=== PATIENT | male | born 1950 | race Caucasian/White ===

== ENCOUNTER 2020-09-23 15:32 | Inpatient (IN) | payer MEDICARE, SELFPAY ==
[2020-09-23] VITALS (16 sets, daily range): BP systolic 105–160; BP diastolic 45–69; PULSE 64–112; RESP 18–36; TEMP 36.7–39.5; O2SAT 91–96; BMI 22.8; BMI 23.5
--- NOTE | 2020-09-23 15:57 | EKG12_ITS ---
Test Reason : FEVER Blood Pressure : / mmHG Vent. Rate : 100 BPM Atrial Rate : 100 BPM P-R Int : 216 ms QRS Dur : 094 ms QT Int : 334 ms P-R-T Axes : 025 -14 073 degrees QTc Int : 430 ms Sinus rhythm with 1st degree A-V block Otherwise normal ECG Confirmed by JONA JUAREZ, BEHZAD ([id number]), managing editor QUENTIN SAUCEDO ([id number]) on 09/29/2020 10:21:37 A M Referred By: EILEEN Confirmed By:INGRIS TENORIO MD
--- NOTE | 2020-09-23 16:12 | ED.DCSUM_ITS ---
History of Present Illness Chief Complaint: Fever Informant: Patient, Family Narrative: 70-year-old male with no significant medical problems tells me that for the past 6 days he has felt ill. He notes fever, headache, sore throat, cough with sputum, myalgias. He notes the sore throat has prevented him from drinking and eating much for the past several days as result he has been urinating less and has not been moving his bowels. He notes he takes daily naproxen for arthritis pain. He feels short of breath. Past Medical History - Allergies and Home Meds Allergies/Adverse Reactions: Allergies No Known Allergies Allergy (Verified 09/23/20 15:39) Primary Care Physician: Care Physician,No Primary [Primary Care Provider] - Past Medical History: None Surgical History: - - Carpal tunnel surgery Lives: Spouse/ Significant Other Smoking Status: Never smoker Alcohol: None Drugs: None Review of Systems General: Reports: Chills, Fever, Malaise. Denies: Sweats Eyes: Denies: Visual changes - bilaterally, Diplopia ENT: Denies: Rhinorrhea, Sore throat Cardiovascular: Denies: Chest pain, Palpitations Respiratory: Reports: Dyspnea, Cough, Sputum. Denies: Dyspnea on exertion Gastrointestinal: Reports: Constipation. Denies: Abdominal pain, Nausea, Vomiting, Diarrhea, Melena, Hematochezia Genitourinary: Reports: - - Decreased urination. Denies: Dysuria, Hematuria, Frequency Musculoskeletal: Reports: Myalgias. Denies: Back pain, Swelling, Extremity Pain Skin: Denies: Rash, Wounds Neurological: Reports: Headache. Denies: Weakness, Numbness Physical Exam Vital Signs/Narrative: Vital Signs Temp Pulse Resp BP Pulse Ox 09/23/20 15:47 112 H 24 H 160/69 H 94 09/23/20 15:43 100.6 F H 09/23/20 15:33 102.9 F H 111 H 18 159/65 H 91 09/23/20 15:32 103.1 F H 112 H 18 159/65 H 91 Inital Vital Signs reviewed: Yes General: Well nourished, Well developed, No Acute Distress Head: Normocephalic, Atraumatic Eyes: Perrl, EOMI ENT: No rhinorrhea, Dry mucous membranes Neck: Supple, Nontender Cardiovascular: Regular rate, No murmurs, Tachycardia Respiratory: No distress, CTA bilaterally, Chest nontender Abdomen: Soft, Nontender, Nondistended, Normal bowel sounds Back: Nontender, Normal Inspection Extremities: Nontender, No edema Skin: Normal color, No rash Neurological: Alert, Oriented x3, Cranial nerves II-XII grossly intact, Normal Strength, Normal Sensation Psychological: Normal affect, Normal Mood Diagnostic/Tx/Re-eval Clinical Impression(s) from Imaging Studies Chest X-Ray 09/23/20 16:55 IMPRESSION: Left lower lung infiltrate. Electronically Signed: Denver Wyman MD at 17:18 EST , Service support , Chest CTA 09/23/20 17:38 IMPRESSION: CTA chest examination, without a demonstrated pulmonary embolism or arterial dissection. Left greater than right pneumonia. Electronically Signed: Denver Wyman MD at 19:14 EST , Service support , Laboratory Last Values WBC 7.5 K/mm3 (4.4-11.0) 09/23/20 16:15 RBC 5.21 M/mm3 (4.6-6.2) 09/23/20 16:15 Hgb 15.0 g/dL (13.0-16.5) 09/23/20 16:15 Hct 44.3 % (40-54) 09/23/20 16:15 MCV 85.0 fL (80-94) 09/23/20 16:15 MCH 28.8 pg (27.0-32.0) 09/23/20 16:15 MCHC 33.9 g/dL (32-36) 09/23/20 16:15 RDW Std Deviation 41.8 fl (35.1-43.9) 09/23/20 16:15 RDW Coeff of Laura 13.4 % (11.6-14.6) 09/23/20 16:15 Plt Count 146 K/mm3 (150-450) L 09/23/20 16:15 MPV 10.2 fl (6.2-12.0) 09/23/20 16:15 Immature Gran % (Auto) 0.300 % (0.0-0.9) 09/23/20 16:15 Neut % (Auto) 96.3 % (47-70) H 09/23/20 16:15 Lymph % (Auto) 0.9 % (19-41) L 09/23/20 16:15 [place] % (Auto) 2.4 % (0-10) 09/23/20 16:15 Eos % (Auto) 0.0 % (0-5) 09/23/20 16:15 Baso % (Auto) 0.1 % (0-1) 09/23/20 16:15 Absolute Neuts (auto) 7.2 X10^3/uL (2.0-7.7) 09/23/20 16:15 Absolute Lymphs (auto) 0.07 X10^3/uL (0.83-4.51) L 09/23/20 16:15 Nucleated RBC % 0 % (0-5) 09/23/20 16:15 Differential Comment SEE COMMENT 09/23/20 16:15 Platelet Estimate SLT DEC (ADEQ) 09/23/20 16:15 RBC Morphology NORM C+C NORMAL (NORM C&C) 09/23/20 16:15 PT 14.1 SECONDS (11.7-14.9) 09/23/20 16:15 INR 1.1 09/23/20 16:15 APTT 39.2 Seconds (24.1-36.2) H 09/23/20 16:15 Fibrinogen 739 mg/dl (203-444) H 09/23/20 16:15 Sodium 136 mmol/L (136-145) 09/23/20 16:15 Potassium 3.5 mmol/L (3.5-5.1) 09/23/20 16:15 Chloride 100 mmol/L (98-107) 09/23/20 16:15 Carbon Dioxide 29.0 mmol/L (21.0-32.0) 09/23/20 16:15 Anion Gap 7 (5-15) 09/23/20 16:15 BUN 23 mg/dL (7-18) H 09/23/20 16:15 Creatinine 1.16 mg/dL (0.70-1.30) 09/23/20 16:15 Estim Creat Clear Calc 56.18 ml/min 09/23/20 16:15 Est GFR (MDRD) Af Amer 80 mL/min (>60) 09/23/20 16:15 Est GFR (MDRD) Non-Af 66 mL/min (>60) 09/23/20 16:15 BUN/Creatinine Ratio 19.8 RATIO (10-20) 09/23/20 16:15 Glucose 117 mg/dL (74-106) H 09/23/20 16:15 Lactic Acid 1.3 mmol/L (0.4-1.9) 09/23/20 16:15 Calcium 8.5 mg/dL (8.5-10.1) 09/23/20 16:15 Total Bilirubin 1.10 mg/dL (0.20-1.00) H 09/23/20 16:15 AST 27 U/L (15-37) 09/23/20 16:15 ALT 26 U/L (16-61) 09/23/20 16:15 Alkaline Phosphatase 44 U/L (45-117) L 09/23/20 16:15 Total Creatine Kinase 183 U/L (39-308) 09/23/20 16:15 Troponin I < 0.015 ng/mL (<0.045) 09/23/20 16:15 C-React Prot Ext Range 215.00 mg/L (0.0-3.0) H 09/23/20 16:15 Total Protein 7.2 g/dL (6.4-8.2) 09/23/20 16:15 Albumin 3.5 g/dL (3.2-5.0) 09/23/20 16:15 Globulin 3.7 g/dL (2.2-4.2) 09/23/20 16:15 Albumin/Globulin Ratio 0.9 RATIO (0.9-2.4) 09/23/20 16:15 Procalcitonin 2.00 ng/mL (0.00-0.09) H 09/23/20 16:15 Urine Color Yellow (Yellow) 09/23/20 17:50 Urine Clarity Clear (Clear) 09/23/20 17:50 Urine pH 5.0 (5.0 - 8.0) 09/23/20 17:50 Ur Specific [place] 1.020 (1.002-1.030) 09/23/20 17:50 Urine Protein 100 mg/dl (Negative) H 09/23/20 17:50 Urine Glucose (UA) Normal mg/dl (Normal) 09/23/20 17:50 Urine Ketones 15 mg/dl (Negative) H 09/23/20 17:50 Urine Occult Blood 25 /ul (Negative) H 09/23/20 17:50 Urine Nitrite Negative (Negative) 09/23/20 17:50 Urine Bilirubin 1 mg/dL (Negative) H 09/23/20 17:50 Urine Urobilinogen 1 mg/dl (Normal) H 09/23/20 17:50 Ur Leukocyte Esterase 25 /ul (Negative) H 09/23/20 17:50 Urine RBC 0 SEEN /hpf (0-5) 09/23/20 17:50 Urine WBC 0 SEEN /hpf (0-5) 09/23/20 17:50 Ur Squamous Epith Cells 0 SEEN /hpf (0-5) 09/23/20 17:50 Urine Bacteria 2+ /hpf (None Seen) 09/23/20 17:50 Urine Mucus 0 SEEN /hpf (<or=2+) 09/23/20 17:50 - EKG Initial EKG Interpretation: Sinus Rhythm - EKG demonstrates a sinus rhythm with a first- degree AV block at a rate of 100 bpm. No concerning features of ACS or ectopy noted. - Medical Decision Making Patient received IV fluids and Tylenol. His COVID-19 test came back positive. Influenza was negative. Lactic acid normal. White count is 7. My interpretation of the portable chest x-ray is acute left lower lung infiltrate. He was given Rocephin and azithromycin. CTA of the chest was obtained. It was negative for pulmonary embolism. There was left greater than right infiltrates noted. Patient appears ill. He has COVID-19 and has evidence of infiltrate on his chest x-ray along with cough and sputum production. Plan will be admission I will speak with our hospitalist. ED Disposition - Plan for ED Patient: Disposition: Acute Care Hospital [facility] Diagnosis: COVID-19, Pneumonia, Sepsis due to COVID-19 Referrals: Care Physician,No Primary [Primary Care Provider] -
[2020-09-23] MEDS: 0.9% Normal Saline 1,000 ML 999 ML IV (16:25)
[2020-09-23] MEDS: Acetaminophen 500 MG Tablet 1000 MG PO (16:25)
[2020-09-23] MEDS: 0.9% Normal Saline 1,000 ML 250 ML IV ×2 (16:34→20:02)
[2020-09-23 16:42] LABS: Absolute Lymphocyte Count 0.07 X10^3/uL (0.83-4.51); Absolute Neutrophil Count 7.2 X10^3/uL (2.0-7.7); Basophil# 0.01 X10^3/uL; Basophil% 0.1 % (0-1); Hematocrit 44.3 % (40-54); Lymphocyte # 0.07 X10^3/ul (4.0); Lymphocyte % 0.9 % (19-41); Mean Corp Hgb Conc 33.9 g/dL (32-36); Mean Corpuscular Hgb 28.8 pg (27.0-32.0); Mean Platelet Vol. 10.2 fl (6.2-12.0); Monocyte# 0.18 X10^3/uL; Monocyte% 2.4 % (0-10); NRBC Flagged by Analyzer 0 % (0-5); Neutrophil # 7.18 X10^3/uL (2.7-7.7); Neutrophil % 96.3 % (47-70); POSITIVE DIFFERENTIAL YES; Platelet Count 146 K/mm3 (150-450); RBC Distribution Width CV 13.4 % (11.6-14.6); RBC Distribution Width SD 41.8 fl (35.1-43.9); Red Blood Count 5.21 M/mm3 (4.6-6.2); White Blood Count 7.5 K/mm3 (4.4-11.0)
[2020-09-23 16:43] LABS: Differential Indicated SCAN CRITERIA MET
[2020-09-23 16:54] LABS: International Normalized Ratio 1.1; Prothrombin Time (Protime)PT. 14.1 SECONDS (11.7-14.9)
[2020-09-23 16:55] LABS: Fibrinogen 739 mg/dl (203-444); Partial Thromboplast Time 39.2 Seconds (24.1-36.2)
[2020-09-23] MEDS: Ceftriaxone 1 GM/50 ML BAG IV (16:55)
--- NOTE | 2020-09-23 16:55 | RAD_ITS ---
STUDY: X-RAY CHEST REASON FOR EXAM: Male, 70 years old. FEVER AND COUGH TECHNIQUE: Single AP portable view of the chest. COMPARISON: None. FINDINGS: There are monitoring devices. There are mild left lower lung increased opacities. There is no demonstrated pleural abnormality. Normal size heart. Normal mediastinum and tsernig. Normal visualized pulmonary arteries. Normal visualized aortic arch and descending thoracic aorta. There are diffuse degenerative changes of the visualized thoracic spine. Normal visualized ribs, clavicles, and shoulders. There is no demonstrated abnormality of the visualized soft tissue structures of the upper abdomen. RAD/Chest 1 View (Portable) IMPRESSION: Left lower lung infiltrate. Electronically Signed: Denevr Wyman MD at 17:18 EST , Service support ,
[2020-09-23 17:15] LABS: Lactic Acid 1.3 mmol/L (0.4-1.9)
[2020-09-23 17:25] LABS: ALB/GLOB Ratio 0.9 RATIO (0.9-2.4); AST(SGOT) 27 U/L (15-37); Alanine Aminotransfer ALT/SGPT 26 U/L (16-61); Albumin, Serum 3.5 g/dL (3.2-5.0); Alkaline Phosphatase 44 U/L (45-117); Anion Gap 7 (5-15); BUN 23 mg/dL (7-18); BUN/Creat Ratio 19.8 RATIO (10-20); CPK Total, Creatine Kinase 183 U/L (39-308); Calcium,Total 8.5 mg/dL (8.5-10.1); Chloride 100 mmol/L (98-107); Creatinine, Serum 1.16 mg/dL (0.70-1.30); EST Glomerular Filtration Rate 66 mL/min (>60); Est Glom Filt Rate - Afr Amer 80 mL/min (>60); Estimated Creatinine Clearance 56.18 ml/min; Globulin 3.7 g/dL (2.2-4.2); Glucose 117 mg/dL (74-106); Potassium 3.5 mmol/L (3.5-5.1); Protein, Total 7.2 g/dL (6.4-8.2); Sodium Level 136 mmol/L (136-145)
[2020-09-23 17:30] LABS: Platelet Estimate SLT DEC (ADEQ); Red Cell Morphology NORM C+C NORMAL (NORM C&C)
--- NOTE | 2020-09-23 17:38 | CT_ITS ---
STUDY: CTA CHEST REASON FOR EXAM: Male, 70 years old. COVID 19 pneumonia dyspnea RADIATION DOSAGE (If Supplied By Facility): CTDIvol = ( 10.16 ) mGy, DLP = ( 372.75 ) mGycm TECHNIQUE: The examination was performed with the intravenous administration of 100mL Isovue-370. Post-processing of the angiographic images was performed, with multiplanar reformation and 3D reconstruction. Individualized dose optimization techniques were used for this CT. COMPARISON: Chest x-ray FINDINGS: Normal enhancement of the main pulmonary artery and right and left pulmonary arteries. Normal enhancement of the bilateral peripheral pulmonary arteries. There is no demonstrated pulmonary embolism. Normal thoracic aorta and visualized great vessels. There is no demonstrated aortic dissection. There are calcifications of the coronary arteries. There are calcified mediastinal lymph nodes. There are calcified right hilar lymph nodes. Normal visualized trachea and bronchi. The lungs are well expanded. There are left greater than right lower lung groundglass and airspace increased opacities.. There is right lower lung granuloma. Normal pleura. Normal chest wall structures. Arthritic of the spine with spurring and ankylosis Normal visualized upper abdomen. CT/CTA Chest W/WO Contrast IMPRESSION: CTA chest examination, without a demonstrated pulmonary embolism or arterial dissection. Left greater than right pneumonia. Electronically Signed: Denver Wyman MD at 19:14 EST , Service support ,
[2020-09-23] MEDS: dexAMETHasone 4 MG Tablet 6 MG PO (17:50)
[2020-09-23 18:03] LABS: Mucous, Urine 0 SEEN /hpf (<or=2+); Red Blood Cells-Urine 0 SEEN /hpf (0-5); Squamous Epithelial Cells - UA 0 SEEN /hpf (0-5); White Blood Cells 0 SEEN /hpf (0-5)
[2020-09-23 18:14] LABS: Color, Urine Yellow (Yellow); Glucose, Dipstick Normal (Normal); Ketone-Dipstick 15 mg/dl (Negative); Leukocyte Esterase-Dipstick 25 /ul (Negative); Nitrite-Dipstick Negative (Negative); Occult Blood-Urine 25 /ul (Negative); Protein-Dipstick 100 mg/dl (Negative); Urine Clarity Clear (Clear); Urine Urobilinogen 1 mg/dl (Normal)
[2020-09-23 18:16] LABS: Urine Bilirubin Dipstick 1 mg/dL (Negative)
[2020-09-23 18:28] LABS: Bacteria 2+ /hpf (None Seen)
--- NOTE | 2020-09-23 19:53 | ED.RN ---
Nurse from ICU will call back for report as she is in a covid room at this time
--- NOTE | 2020-09-23 20:06 | PCM.HP.STD ---
Problem List (1) COVID-19 Status: Acute (2) Pneumonia Status: Acute (3) Sepsis due to COVID-19 Status: Acute History of Present Illness Date of Admission: 09/23/20 Chief Complaint: Shortness of breath, cough for 5 days The patient is a 70 year old M with no significant past medical history came to ER with shortness of breath, cough, fever and chills, headache for last 5 days. This started with headache, muscle aches, sore throat and after few days he started having fever and chills. Temperature in ED 102.9 Fahrenheit. Patient denies any recent exposure to [place] gathering. He lives with his . Patient denies chronic cardiopulmonary disease, smoking history, stroke or peripheral arterial disease. Denies chest pain or tightness but has sore throat. He also said decreased oral intake of fluid and food for last 4 days secondary to sore throat and his urine output is low and dark yellow.\ In ED, he was tachypneic, pulse ox 93% on room air. [] Labs reviewed. Inflammatory markers elevated including fibrinogen, PTT, CRP, procalcitonin 2.0. Patient does not have leukocytosis but relative lymphopenia 0.9%. Chest x-ray and subsequent CTA chest was done which shows left lower lobe infiltrate, more than right lower lobe but negative for pulmonary embolism. Past Medical History Allergies No Known Allergies Allergy (Verified 09/23/20 15:39) Home Medications: Ambulatory Orders Medication Instructions Recorded Naproxen Sodium [Aleve] 440 mg PO DAILY 09/23/20 Surgical History: - - Carpal tunnel surgery Lives: Spouse/ Significant Other Smoking Status: Never smoker Alcohol: None Drugs: None - *Family History Paternal History Items: No pertinent history Review of Systems Constitutional: Reports: Anorexia, Chills, Fever, Malaise, Weakness, Fatigue. Denies: Weight Change HEENT: Denies: Head Aches, Sinus Congestion, Sinus Drainage Cardiovascular: Denies: Chest Pain, Palpitations Respiratory: Reports: Cough, Shortness of Breath, Shortness of breath at rest, Shortness of breath upon exertion, Sputum production Gastrointestinal: Denies: Abdominal Pain, Constipation, Hematemesis, Hematochezia, Nausea, Melena, Vomiting Genitourinary: Reports: - - Oliguria. Denies: Dysuria, Frequency, Hesitancy Musculoskeletal: Reports: Muscle pain. Denies: Joint Pain, Joint Tenderness Skin: Denies: Rash, Wounds Neurological: Denies: Numbness, Tingling, Focal weakness Psychiatric: Denies: Anxiety, Depression, Homicidal Ideations, Suicidal Ideations Hematologic/ Lymphatic: Denies: Easy Bruising, Easy Bleeding VTE Information - Inpt Only VTE Present on Admission: No VTE Mechan Device Prophylaxis: SCD's, None VTE Pharm Prophylaxis ordered?: Yes Patient Problems: Active and Suspected Problems COVID-19 (Acute) Pneumonia (Acute) Sepsis due to COVID-19 (Acute) Objective: General: Alert, Oriented x3, Cooperative HEENT: Atraumatic, PERRLA, EOMI, Normocephalic Oral: No Gingival or Mucosal Lesions/ Ulcerations Neck: Supple, No JVD, Negative Carotid Bruits Lungs: Air entry diminished in bilateral lung bases. Bilateral coarse crepitations present. Tachypnea. Cardiovascular: Regular rate, Regular Rhythm, Normal S1, Normal S2, No murmurs Abdomen: Bowel Sounds Present, Soft, Non Tender, Non-Distended : No renal angle tenderness. No suprapubic tenderness. Extremities: No edema, Capillary Refill Less than 3 Seconds Skin: No rashes, No breakdown Musculoskeletal: No Tenderness to Palpation of Joints or Extremities Neurological: Cranial nerves II-XII grossly intact, Deep Tendon Reflexes 2+/4 and Symmetrical, Neuro grossly intact Psych/Mental Status: Normal Affect, Appropriate. - Physical Exam Vitals/I&O's: Vital Signs Temp Pulse Resp BP Pulse Ox 99.1 F 73 26 H 105/59 L 94 09/23/20 20:03 09/23/20 20:03 09/23/20 20:03 09/23/20 20:03 09/23/20 20:03 Oxygen Delivery Method Room Air Weight: 149 lb 14.629 oz Body Mass Index (BMI) 22.8 Intake and Output for Last 24 Hours 09/21/20 09/22/20 09/23/20 23:59 23:59 23:59 Intake Total 2305 / 2305 Balance 2305 / 2305 Microbiology Past 72 Hours 09/23/20 16:50 Mucosa - Nose SARS-CoV-2 Antigen (Rapid) - Final SARS-CoV-2 (COVID 19) 09/23/20 16:16 Mucosa - Nasopharyngeal Influenza Types A,B Direct FA (LOREE) - Final Laboratory Results 09/23/20 16:15: WBC 7.5, RBC 5.21, Hgb 15.0, Hct 44.3, MCV 85.0, MCH 28.8, MCHC 33.9, RDW Std Deviation 41.8, RDW Coeff of Laura 13.4, Plt Count 146 L, MPV 10.2, Immature Gran % (Auto) 0.300, Neut % (Auto) 96.3 H, Lymph % (Auto) 0.9 L, [place] % (Auto) 2.4, Eos % (Auto) 0.0, Baso % (Auto) 0.1, Absolute Neuts (auto) 7.2, Absolute Lymphs (auto) 0.07 L, Nucleated RBC % 0, Differential Comment SEE COMMENT, Platelet Estimate SLT DEC, RBC Morphology NORM C+C 09/23/20 16:15: PT 14.1, INR 1.1, APTT 39.2 H, Fibrinogen 739 H 09/23/20 16:15: Sodium 136, Potassium 3.5, Chloride 100, Carbon Dioxide 29.0, Anion Gap 7, BUN 23 H, Creatinine 1.16, Estim Creat Clear Calc 56.18, Est GFR (MDRD) Af Amer 80, Est GFR (MDRD) Non-Af 66, BUN/Creatinine Ratio 19.8, Glucose 117 H, Calcium 8.5, Total Bilirubin 1.10 H, AST 27, ALT 26, Alkaline Phosphatase 44 L, Total Creatine Kinase 183, Troponin I < 0.015, C-React Prot Ext Range 215.00 H, Total Protein 7.2, Albumin 3.5, Globulin 3.7, Albumin/Globulin Ratio 0.9 09/23/20 16:15: Lactic Acid 1.3 09/23/20 16:15: Procalcitonin 2.00 H 09/23/20 17:50: Urine Color Yellow, Urine Clarity Clear, Urine pH 5.0, Ur Specific [place] 1.020, Urine Protein 100 H, Urine Glucose (UA) Normal, Urine Ketones 15 H, Urine Occult Blood 25 H, Urine Nitrite Negative, Urine Bilirubin 1 H, Urine Urobilinogen 1 H, Ur Leukocyte Esterase 25 H, Urine RBC 0 SEEN, Urine WBC 0 SEEN, Ur Squamous Epith Cells 0 SEEN, Urine Bacteria 2+, Urine Mucus 0 SEEN Current Medications Sodium Chloride () 1,000 mls @ 250 mls/hr IV .Q4H LEONIDAS Last Admin: 09/23/20 20:02 Dose: 250 mls/hr Documented by: Assessment/Plan All Active Problems COVID-19 (Acute) Pneumonia (Acute) Sepsis due to COVID-19 (Acute) The patient is a 70 year old M with no significant past medical history came to ER with shortness of breath, cough, fever and chills, headache for last 5 days. Clinical findings, labs and CT consistent with pneumonia. 1. Sepsis due to acute COVID-19 pneumonia with possible bacterial superinfection: CT chest individually reviewed and does not show predominant groundglass but mainly left lower lobe infiltrate. Patient started on ceftriaxone, azithromycin and Decadron in the ER. Continue ceftriaxone Decadron. IV remdesivir started. ID consult. Sputum culture, urinary antigens, respiratory panel ordered. SARS-CoV-2 rapid antigen positive. 2. Prerenal azotemia with oliguria: IV fluid normal saline 1 L given in ED. 1 more liter normal saline bolus ordered and then 100 mill hour for another 1 L. 3. DVT prophylaxis: Lovenox 30 subcu twice daily Living will/advanced directive/end of life care: Patient does not have living will or advanced directive. His is power of attorney recruiter for his health. After discussion of benefits/risks procedures involved with full code, DNR CC arrest and DNR CC, the patient opted for DNR-CC Arrest with no intubation Patient does not want artificial life support including intubation, tube feed, ventilator and/chest compression, central venous catheter, vasopressor and DC shock if needed Total time spent in [id number] encounter in discussion of advanced directive 16 minutes. Clinical Impression(s) from Imaging Studies Chest X-Ray 09/23/20 16:55 IMPRESSION: Left lower lung infiltrate. Electronically Signed: Denver Wyman MD at 17:18 EST , Service support , Chest CTA 09/23/20 17:38 IMPRESSION: CTA chest examination, without a demonstrated pulmonary embolism or arterial dissection. Left greater than right pneumonia. Inpatient E&M: 36203 Init Hosp L3 Procedures: 12310 Advncd Care Plan 30 Min
--- NOTE | 2020-09-23 20:18 | ED.RN ---
report SBARQ given to BOLA Goldberg in ICU for patient
[2020-09-23 20:49] LABS: BNP,B-Type NATRIURETIC PEPTIDE 36.4 pg/mL (0-100)
[2020-09-23 20:50] LABS: D-Dimer Quantitative (DVT/PE) 1.06 FEU/ug/m (0.27-0.49)
[2020-09-23 21:36] LABS: LDH 221 U/L (87-241)
[2020-09-23] MEDS: Enoxaparin 30 MG/0.3 ML Syringe SC (21:45)
[2020-09-23] MEDS: 0.9% Normal Saline 1,000 ML 100 ML IV (21:46)
[2020-09-24] VITALS (11 sets, daily range): BP systolic 126–135; BP diastolic 48–64; PULSE 51–66; RESP 16–18; TEMP 37.2–37.3; O2SAT 95–98
[2020-09-24 04:41] LABS: Hematocrit 38.7 % (40-54); Hemoglobin 12.6 g/dL (13.0-16.5); Mean Corp Hgb Conc 32.6 g/dL (32-36); Mean Corpuscular Hgb 28.1 pg (27.0-32.0); Mean Corpuscular Volume 86.4 fL (80-94); Mean Platelet Vol. 10.4 fl (6.2-12.0); Platelet Count 121 K/mm3 (150-450); RBC Distribution Width CV 13.3 % (11.6-14.6); RBC Distribution Width SD 42.5 fl (35.1-43.9); Red Blood Count 4.48 M/mm3 (4.6-6.2); White Blood Count 5.4 K/mm3 (4.4-11.0)
[2020-09-24 05:09] LABS: ALB/GLOB Ratio 0.9 RATIO (0.9-2.4); AST(SGOT) 34 U/L (15-37); Alanine Aminotransfer ALT/SGPT 25 U/L (16-61); Albumin, Serum 2.6 g/dL (3.2-5.0); Alkaline Phosphatase 40 U/L (45-117); Anion Gap 6 (5-15); BUN 22 mg/dL (7-18); BUN/Creat Ratio 23.5 RATIO (10-20); Calcium,Total 7.6 mg/dL (8.5-10.1); Chloride 106 mmol/L (98-107); Creatinine, Serum 0.94 mg/dL (0.70-1.30); EST Glomerular Filtration Rate 85 mL/min (>60); Est Glom Filt Rate - Afr Amer 102 mL/min (>60); Estimated Creatinine Clearance 69.73 ml/min; Glucose 141 mg/dL (74-106); Magnesium 1.8 mg/dL (1.6-2.6); Potassium 3.7 mmol/L (3.5-5.1); Protein, Total 5.6 g/dL (6.4-8.2); Sodium Level 139 mmol/L (136-145)
[2020-09-24] MEDS: 0.9% Saline Lock 10 ML Syringe IV (10:06)
[2020-09-24] MEDS: Enoxaparin 30 MG/0.3 ML Syringe SC ×2 (10:07→22:26)
[2020-09-24] MEDS: dexAMETHasone 4 MG Tablet 6 MG PO (10:10)
--- NOTE | 2020-09-24 10:12 | PN_ITS ---
Patient Problems: Active and Suspected Problems COVID-19 (Acute) Pneumonia (Acute) Sepsis due to COVID-19 (Acute) Subjective: Patient seen and examined. He was admitted with a complaint of shortness of breath and cough for 5 days with associated headache and muscle aches. Covid test done was positive. He has been managed for COVID-19 infection and is on Decadron and remdesivir. Patient still states he feels weak and tired. His shortness of breath is improved but he feels the same as he did yesterday. Review systems otherwise negative. He has remained hemodynamically stable. Vitals/I&O's: Vital Signs Temp Pulse Resp BP Pulse Ox 99.2 F H 65 16 135/48 H 98 09/24/20 10:05 09/24/20 10:05 09/24/20 10:05 09/24/20 10:05 09/24/20 10:05 Oxygen Delivery Method Room Air Weight: 154 lb 8.705 oz Body Mass Index (BMI) 23.5 Intake and Output for Last 24 Hours 09/22/20 09/23/20 09/24/20 23:59 23:59 23:59 Intake Total 3437.5 / 3437.5 1120 / 1120 Output Total 250 / 250 300 / 300 Balance 3187.5 / 3187.5 820 / 820 General: Alert, Oriented x3, Cooperative, No apparent distress HEENT: Atraumatic, PERRLA, EOMI, Normocephalic Oral: Dry Mucosa Neck: Supple, No JVD, Negative Carotid Bruits Lungs: Clear to auscultation, Normal air movement, No rhonchi, No wheeze, No rales Cardiovascular: Regular rate, Regular Rhythm, Normal S1, Normal S2, No murmurs Abdomen: Bowel Sounds Present, Soft, Non Tender, Non-Distended, No Hepato- splenomegaly Extremities: No clubbing, No cyanosis, No edema, Capillary Refill Less than 3 Seconds Skin: No rashes, No breakdown Musculoskeletal: No Tenderness to Palpation of Joints or Extremities Lymphatic: No Cervical, Supraclavicular, or Inguinal Adenopathy Neurological: Cranial nerves II-XII grossly intact, Neuro grossly intact, Motor Exam 5/5 strength throughout Psych/Mental Status: Normal Affect, Appropriate, Alert and oriented to time, place, person, mood and affect Microbiology Past 72 Hours 09/24/20 04:25 Sputum, Expectorated/Coughed Gram Stain - Final 09/23/20 16:50 Mucosa - Nasopharyngeal Respiratory Panel (PCR) - Final 09/23/20 17:50 Urine, Clean Catch Legionella Antigen - Final 09/23/20 17:50 Urine, Clean Catch Streptococcus pneumoniae Antigen (M - Final 09/23/20 16:50 Mucosa - Nose SARS-CoV-2 Antigen (Rapid) - Final SARS-CoV-2 (COVID 19) 09/23/20 16:16 Mucosa - Nasopharyngeal Influenza Types A,B Direct FA (LOREE) - Final Laboratory Results 09/23/20 16:15: WBC 7.5, RBC 5.21, Hgb 15.0, Hct 44.3, MCV 85.0, MCH 28.8, MCHC 33.9, RDW Std Deviation 41.8, RDW Coeff of Laura 13.4, Plt Count 146 L, MPV 10.2, Immature Gran % (Auto) 0.300, Neut % (Auto) 96.3 H, Lymph % (Auto) 0.9 L, [place] % (Auto) 2.4, Eos % (Auto) 0.0, Baso % (Auto) 0.1, Absolute Neuts (auto) 7.2, Absolute Lymphs (auto) 0.07 L, Nucleated RBC % 0, Differential Comment SEE COMMENT, Platelet Estimate SLT DEC, RBC Morphology NORM C+C 09/23/20 16:15: PT 14.1, INR 1.1, APTT 39.2 H, Fibrinogen 739 H 09/23/20 16:15: Sodium 136, Potassium 3.5, Chloride 100, Carbon Dioxide 29.0, Anion Gap 7, BUN 23 H, Creatinine 1.16, Estim Creat Clear Calc 56.18, Est GFR (MDRD) Af Amer 80, Est GFR (MDRD) Non-Af 66, BUN/Creatinine Ratio 19.8, Glucose 117 H, Calcium 8.5, Total Bilirubin 1.10 H, AST 27, ALT 26, Alkaline Phosphatase 44 L, Total Creatine Kinase 183, Troponin I < 0.015, C-React Prot Ext Range 215.00 H, Total Protein 7.2, Albumin 3.5, Globulin 3.7, Albumin/Globulin Ratio 0.9 09/23/20 16:15: Lactic Acid 1.3 09/23/20 16:15: Procalcitonin 2.00 H 09/23/20 16:15: D-Dimer Quant (PE/DVT) 1.06 H* 09/23/20 16:15: B-Natriuretic Peptide 36.4 09/23/20 16:15: Lactate Dehydrogenase 221 09/23/20 17:50: Urine Color Yellow, Urine Clarity Clear, Urine pH 5.0, Ur Specific [place] 1.020, Urine Protein 100 H, Urine Glucose (UA) Normal, Urine Ketones 15 H, Urine Occult Blood 25 H, Urine Nitrite Negative, Urine Bilirubin 1 H, Urine Urobilinogen 1 H, Ur Leukocyte Esterase 25 H, Urine RBC 0 SEEN, Urine WBC 0 SEEN, Ur Squamous Epith Cells 0 SEEN, Urine Bacteria 2+, Urine Mucus 0 SEEN 09/24/20 04:25: WBC 5.4, RBC 4.48 L, Hgb 12.6 L, Hct 38.7 L, MCV 86.4, MCH 28.1, MCHC 32.6, RDW Std Deviation 42.5, RDW Coeff of Laura 13.3, Plt Count 121 L, MPV 10.4 09/24/20 04:25: Sodium 139, Potassium 3.7, Chloride 106, Carbon Dioxide 27.0, Anion Gap 6, BUN 22 H, Creatinine 0.94, Estim Creat Clear Calc 69.73, Est GFR (MDRD) Af Amer 102, Est GFR (MDRD) Non-Af 85, BUN/Creatinine Ratio 23.5 H, Glucose 141 H, Calcium 7.6 L, Magnesium 1.8, Total Bilirubin 0.50, AST 34, ALT 25, Alkaline Phosphatase 40 L, C-React Prot Ext Range 150.00 H, Total Protein 5.6 L, Albumin 2.6 L, Globulin 3.0, Albumin/Globulin Ratio 0.9 Diagnostic Data Chest X-Ray 09/23/20 16:55 IMPRESSION: Left lower lung infiltrate. Electronically Signed: Denver Wyman MD at 17:18 EST , Service support , Chest CTA 09/23/20 17:38 IMPRESSION: CTA chest examination, without a demonstrated pulmonary embolism or arterial dissection. Left greater than right pneumonia. Electronically Signed: Denver Wyman MD at 19:14 EST , Service support , Current Medications Acetaminophen (Acetaminophen 325 Mg Tablet) 650 mg PO Q6H PRN PRN PRN Reason: Pain Score 1-10/Temp > 100.7 F Dexamethasone (Dexamethasone 4 Mg Tablet) 6 mg PO DAILY [facility] Stop: 10/02/20 10:01 Last Admin: 09/24/20 10:10 Dose: 6 mg Documented by: Enoxaparin Sodium (Enoxaparin 30 Mg/0.3 Ml Syringe) 30 mg SC BID [facility] Last Admin: 09/24/20 10:07 Dose: 30 mg Documented by: Remdesivir 100 mg/ Sodium (Chloride) 250 mls @ 125 mls/hr IV DAILY@2200 [facility] Stop: 09/27/20 23:59 Sodium Chloride () 250 mls @ 15 mls/hr IV .[id number] PRN PRN Reason: Saline Flush Sodium Chloride () 250 mls @ 15 mls/hr IV .[id number] PRN PRN Reason: Additional IVPB Infusion Morphine Sulfate (Morphine 2 Mg/Ml Syringe) 2 mg IV Q3H PRN PRN PRN Reason: Pain Score 6-10 Nitroglycerin (Nitroglycerin (Inpatient Use) 0.4 Mg Tab.Subl) 0.4 mg SL Q5M PRN PRN Reason: CARDIAC/CHEST PAIN Nutritional Formula (Lactose Free) (Ensure Enlive 120 Ml Liquid) 120 ml PO 4X/DAY [facility] Last Admin: 09/24/20 10:03 Dose: Not Given Documented by: Ondansetron HCl (Ondansetron 4 Mg/2 Ml Vial) 4 mg IV Q8H PRN PRN PRN Reason: NAUSEA/VOMITING Oxycodone HCl (Oxycodone 5 Mg Tablet) 5 mg PO Q4H PRN PRN PRN Reason: Pain Score 4-5 Senna/Docusate Sodium (Senna/Docusate Sodium 1 Tablet) 2 tablet PO BID PRN PRN PRN Reason: Constipation Sodium Chloride (0.9% Saline Lock 10 Ml Syringe) 10 - 40 ml IV UD PRN PRN Reason: SALINE FLUSH Last Admin: 09/24/20 10:06 Dose: 20 ml Documented by: STROKE Vital Signs/Narrative: Vital Signs Temp Pulse Resp BP Pulse Ox 09/24/20 10:05 99.2 F H 65 16 135/48 H 98 09/24/20 08:06 95 Medical Necessity - Tobacco Use Smoking Status: Never smoker Assessment/Plan All Active Problems COVID-19 (Acute) Pneumonia (Acute) Sepsis due to COVID-19 (Acute) #Sepsis due to COVID 19 pneumonia with superimposed bacterial pneumonia * Chest CT showed left lower lobe infiltrate. On IV ceftriaxone and azithromycin. * On remdesivir and decadron * urine for strep and legionella were negative * ID on board * sputum culture pending * #COVID 19 pneumonia; as above #DVT prophylaxis: lovenox Inpatient E&M: 51867 Subs Hosp L2
--- NOTE | 2020-09-24 10:39 | PCM.HP.ID ---
Problem List (1) COVID-19 Status: Acute Reason for Consult: covid Consulted by: Dr. Thao History of Present Illness: The patient is a 70 year old M presented 09/23 with sx starting 09/18 with headache, fever, sore throat, cough, dyspnea. Minimal aches. No change in taste and smell. Has increased amount of normal yellow/green sputum. Has not gotten covid shot. now with some cough, has not been tested. Came to ED, covid (+), started on dex and remdesivir. Given azithro and ceftriaxone. Feeling about the same this AM. Full ROS performed and neg except as noted above. - Medical History Surgical History: reviewed Allergies/Adverse Reactions: Allergies No Known Allergies Allergy (Verified 09/23/20 15:39) Home Medications: Ambulatory Orders Medication Instructions Recorded Naproxen Sodium [Aleve] 440 mg PO DAILY 09/23/20 - Social History Tobacco Use: non-smoker Vital Signs Temp Pulse Resp BP Pulse Ox 99.2 F H 65 16 135/48 H 98 09/24/20 10:05 09/24/20 10:05 09/24/20 10:05 09/24/20 10:05 09/24/20 10:05 Oxygen Delivery Method Room Air Weight: 70.1 kg Body Mass Index (BMI) 23.5 Microbiology Past 72 Hours 09/24/20 04:25 Gram Stain - Final Sputum, Expectorated/Coughed 09/23/20 16:50 Respiratory Panel (PCR) - Final Mucosa - Nasopharyngeal 09/23/20 17:50 Legionella Antigen - Final Urine, Clean Catch Streptococcus pneumoniae Antigen (M - Final 09/23/20 16:50 SARS-CoV-2 Antigen (Rapid) - Final Mucosa - Nose SARS-CoV-2 (COVID 19) 09/23/20 16:16 Influenza Types A,B Direct FA (LOREE) - Final Mucosa - Nasopharyngeal Laboratory Tests Past 24 Hrs 09/23/20 09/23/20 09/23/20 16:15 16:15 16:15 WBC 7.5 RBC 5.21 Hgb 15.0 Hct 44.3 MCV 85.0 MCH 28.8 MCHC 33.9 RDW Std Deviation 41.8 RDW Coeff of Laura 13.4 Plt Count 146 L MPV 10.2 Immature Gran % (Auto) 0.300 Neut % (Auto) 96.3 H Lymph % (Auto) 0.9 L [place] % (Auto) 2.4 Eos % (Auto) 0.0 Baso % (Auto) 0.1 Absolute Neuts (auto) 7.2 Absolute Lymphs (auto) 0.07 L Nucleated RBC % 0 Differential Comment SEE COMMENT Platelet Estimate SLT DEC RBC Morphology NORM C+C PT 14.1 INR 1.1 APTT 39.2 H Fibrinogen 739 H D-Dimer Quant (PE/DVT) Sodium 136 Potassium 3.5 Chloride 100 Carbon Dioxide 29.0 Anion Gap 7 BUN 23 H Creatinine 1.16 Estim Creat Clear Calc 56.18 Est GFR (MDRD) Af Amer 80 Est GFR (MDRD) Non-Af 66 BUN/Creatinine Ratio 19.8 Glucose 117 H Lactic Acid Calcium 8.5 Magnesium Total Bilirubin 1.10 H AST 27 ALT 26 Alkaline Phosphatase 44 L Lactate Dehydrogenase Total Creatine Kinase 183 Troponin I < 0.015 C-React Prot Ext Range 215.00 H B-Natriuretic Peptide Total Protein 7.2 Albumin 3.5 Globulin 3.7 Albumin/Globulin Ratio 0.9 Procalcitonin Urine Color Urine Clarity Urine pH Ur Specific [place] Urine Protein Urine Glucose (UA) Urine Ketones Urine Occult Blood Urine Nitrite Urine Bilirubin Urine Urobilinogen Ur Leukocyte Esterase Urine RBC Urine WBC Ur Squamous Epith Cells Urine Bacteria Urine Mucus 09/23/20 09/23/20 09/23/20 16:15 16:15 16:15 WBC RBC Hgb Hct MCV MCH MCHC RDW Std Deviation RDW Coeff of Laura Plt Count MPV Immature Gran % (Auto) Neut % (Auto) Lymph % (Auto) [place] % (Auto) Eos % (Auto) Baso % (Auto) Absolute Neuts (auto) Absolute Lymphs (auto) Nucleated RBC % Differential Comment Platelet Estimate RBC Morphology PT INR APTT Fibrinogen D-Dimer Quant (PE/DVT) 1.06 H* Sodium Potassium Chloride Carbon Dioxide Anion Gap BUN Creatinine Estim Creat Clear Calc Est GFR (MDRD) Af Amer Est GFR (MDRD) Non-Af BUN/Creatinine Ratio Glucose Lactic Acid 1.3 Calcium Magnesium Total Bilirubin AST ALT Alkaline Phosphatase Lactate Dehydrogenase Total Creatine Kinase Troponin I C-React Prot Ext Range B-Natriuretic Peptide Total Protein Albumin Globulin Albumin/Globulin Ratio Procalcitonin 2.00 H Urine Color Urine Clarity Urine pH Ur Specific [place] Urine Protein Urine Glucose (UA) Urine Ketones Urine Occult Blood Urine Nitrite Urine Bilirubin Urine Urobilinogen Ur Leukocyte Esterase Urine RBC Urine WBC Ur Squamous Epith Cells Urine Bacteria Urine Mucus 09/23/20 09/23/20 09/23/20 16:15 16:15 17:50 WBC RBC Hgb Hct MCV MCH MCHC RDW Std Deviation RDW Coeff of Laura Plt Count MPV Immature Gran % (Auto) Neut % (Auto) Lymph % (Auto) [place] % (Auto) Eos % (Auto) Baso % (Auto) Absolute Neuts (auto) Absolute Lymphs (auto) Nucleated RBC % Differential Comment Platelet Estimate RBC Morphology PT INR APTT Fibrinogen D-Dimer Quant (PE/DVT) Sodium Potassium Chloride Carbon Dioxide Anion Gap BUN Creatinine Estim Creat Clear Calc Est GFR (MDRD) Af Amer Est GFR (MDRD) Non-Af BUN/Creatinine Ratio Glucose Lactic Acid Calcium Magnesium Total Bilirubin AST ALT Alkaline Phosphatase Lactate Dehydrogenase 221 Total Creatine Kinase Troponin I C-React Prot Ext Range B-Natriuretic Peptide 36.4 Total Protein Albumin Globulin Albumin/Globulin Ratio Procalcitonin Urine Color Yellow Urine Clarity Clear Urine pH 5.0 Ur Specific [place] 1.020 Urine Protein 100 H Urine Glucose (UA) Normal Urine Ketones 15 H Urine Occult Blood 25 H Urine Nitrite Negative Urine Bilirubin 1 H Urine Urobilinogen 1 H Ur Leukocyte Esterase 25 H Urine RBC 0 SEEN Urine WBC 0 SEEN Ur Squamous Epith Cells 0 SEEN Urine Bacteria 2+ Urine Mucus 0 SEEN 09/24/20 09/24/20 04:25 04:25 WBC 5.4 RBC 4.48 L Hgb 12.6 L Hct 38.7 L MCV 86.4 MCH 28.1 MCHC 32.6 RDW Std Deviation 42.5 RDW Coeff of Laura 13.3 Plt Count 121 L MPV 10.4 Immature Gran % (Auto) Neut % (Auto) Lymph % (Auto) [place] % (Auto) Eos % (Auto) Baso % (Auto) Absolute Neuts (auto) Absolute Lymphs (auto) Nucleated RBC % Differential Comment Platelet Estimate RBC Morphology PT INR APTT Fibrinogen D-Dimer Quant (PE/DVT) Sodium 139 Potassium 3.7 Chloride 106 Carbon Dioxide 27.0 Anion Gap 6 BUN 22 H Creatinine 0.94 Estim Creat Clear Calc 69.73 Est GFR (MDRD) Af Amer 102 Est GFR (MDRD) Non-Af 85 BUN/Creatinine Ratio 23.5 H Glucose 141 H Lactic Acid Calcium 7.6 L Magnesium 1.8 Total Bilirubin 0.50 AST 34 ALT 25 Alkaline Phosphatase 40 L Lactate Dehydrogenase Total Creatine Kinase Troponin I C-React Prot Ext Range 150.00 H B-Natriuretic Peptide Total Protein 5.6 L Albumin 2.6 L Globulin 3.0 Albumin/Globulin Ratio 0.9 Procalcitonin Urine Color Urine Clarity Urine pH Ur Specific [place] Urine Protein Urine Glucose (UA) Urine Ketones Urine Occult Blood Urine Nitrite Urine Bilirubin Urine Urobilinogen Ur Leukocyte Esterase Urine RBC Urine WBC Ur Squamous Epith Cells Urine Bacteria Urine Mucus - Other Studies Radiology: [] reviewed Other Studies: [] Route of nutrition/ use of supplements: [] Nutritional Intake: [] IV Site: [] Jones Catheter: [] - Physical Exam General: Alert, Oriented x3, Cooperative HEENT: Atraumatic, PERRLA, EOMI Neck: Supple, No Nodes Lungs: Clear to auscultation, Normal air movement Cardiovascular: Regular rate, Regular Rhythm Abdomen: Soft, Non Tender, Non-Distended Extremities: No edema Skin: No rashes IV Site: Peripheral, without redness Musculoskeletal: No Tenderness to Palpation of Joints or Extremities Neurological: Cranial nerves II-XII grossly intact - Assessment/Plan Antibiotics: [] Assessment/Plan: [] Active and Suspected Problems COVID-19 (Acute) Pneumonia (Acute) Sepsis due to COVID-19 (Acute) covid with hypoxia - sx started 09/18/20. Recommended get tested and quarantine; she may be candidate for monoclonal Ab infusion. Fever resolved, UAg neg, sputum cx pending. CT showed no PE. Cont dex and remdesivir, will change dex to po. Will stop ceftriaxone, monitor cxs. Will follow, thank you
--- NOTE | 2020-09-24 10:48 | CASEMGMT ---
BOLA KINNEY ASSESSMENT Pt in COVID precautions. Testing completed @ [facility] 09/23. BOLA KINNEY placed call to pt's room for initial transition planning/care coordination assessment. BOLA KINNEY introduced self and role at [facility]. Pt voices understanding and consents to assessment at this time. Pt is A/O at this time and answers all questions appropriately. Care providers, pharmacy, and demographics verified/updated at this time. PCP: No PCP. Pt states would be amenable to a list of local PCP's in the [place] area. List provided to staff to give to pt. Preferred Pharmacy: [facility] [place], [place] Insurance: [facility] Prescription Benefit: Yes Living Will/HPOA: Pt does not currently have LW/HCPOA. Pt made aware that he can contact SW as an out-pt and make appt in the future if he decides he would like to talk with someone about this or would like to utilize [facility] social work for advanced directive completion. Staff given [employer] card with information and contact number to give to pt. LNOK: , Neena Living Arrangements: Lives w/his in one-story home w/4 steps to enter. Denies difficulty with stairs. Independent @ home. has had a cough and Dr Cerna has recommended she be tested for COVID, per pt. Pt states is currently home alone and she is working on finding someone to warehouse order picker some milk, but otherwise they do have some groceries @ the home for to prepare meals. Pt states they have masks and disinfectants @ home. They only have one bathroom, but they sleep in separate bedrooms. Pt made aware [facility] has a retail pharmacy and meds can be delivered to him prior to discharge. Pt declines. He states, once he is home, he plans to utilize curb-side warehouse order picker for prescriptions. He was made aware several grocery stores also provide curb-side warehouse order picker for groceries. He voices understanding. Transportation: Pt states drives self and states no transportation concerns at this time. does not drive. Pt states his neighbor, who brought him into ED, offered to take him home @ discharge. DME: Denies using any DME and denies needs. Does not have home O2. Currently on RA. Pt states does not have preference of DME co. if he would need O2 @ discharge. Pt made aware he will be provided with list of DME companies to choose from if there are any DME needs @ dc. HHC/SNF: No history of either. No needs identified. Pt declines need of HHC. Pt wishes to return home and states has no concerns with going home at time of discharge. CM to follow for home oxygen needs and any further discharge planning/needs. Pt voices no further concerns/needs at this time. Advised pt to ask for CM if any further questions/concerns/needs arise. Voices understanding. PLAN: Home w/discharge plans in place. Follow for any O2 needs @ discharge. Paulette OLIVAN RN CM
[2020-09-24] MEDS: Acetaminophen 325 MG Tablet 650 MG PO (14:52)
[2020-09-25] VITALS (11 sets, daily range): BP systolic 132–151; BP diastolic 62–65; PULSE 50–84; RESP 16–24; TEMP 36.6–39.1; O2SAT 94–100
[2020-09-25 04:59] LABS: Hematocrit 37.2 % (40-54); Hemoglobin 12.6 g/dL (13.0-16.5); Mean Corp Hgb Conc 33.9 g/dL (32-36); Mean Corpuscular Hgb 28.8 pg (27.0-32.0); Mean Corpuscular Volume 84.9 fL (80-94); Mean Platelet Vol. 10.8 fl (6.2-12.0); Platelet Count 124 K/mm3 (150-450); RBC Distribution Width CV 13.3 % (11.6-14.6); RBC Distribution Width SD 41.8 fl (35.1-43.9); Red Blood Count 4.38 M/mm3 (4.6-6.2); White Blood Count 6.1 K/mm3 (4.4-11.0)
[2020-09-25 05:17] LABS: ALB/GLOB Ratio 0.8 RATIO (0.9-2.4); AST(SGOT) 27 U/L (15-37); Alanine Aminotransfer ALT/SGPT 24 U/L (16-61); Albumin, Serum 2.4 g/dL (3.2-5.0); Alkaline Phosphatase 36 U/L (45-117); Anion Gap 6 (5-15); BUN 21 mg/dL (7-18); BUN/Creat Ratio 24.7 RATIO (10-20); Calcium,Total 7.4 mg/dL (8.5-10.1); Chloride 106 mmol/L (98-107); Creatinine, Serum 0.85 mg/dL (0.70-1.30); EST Glomerular Filtration Rate 95 mL/min (>60); Est Glom Filt Rate - Afr Amer 114 mL/min (>60); Estimated Creatinine Clearance 77.12 ml/min; Globulin 2.9 g/dL (2.2-4.2); Glucose 120 mg/dL (74-106); Potassium 3.6 mmol/L (3.5-5.1); Protein, Total 5.3 g/dL (6.4-8.2); Sodium Level 139 mmol/L (136-145)
[2020-09-25] MEDS: Acetaminophen 325 MG Tablet 650 MG PO ×2 (09:11→20:55)
[2020-09-25] MEDS: dexAMETHasone 4 MG Tablet 6 MG PO (11:35)
[2020-09-25] MEDS: Enoxaparin 30 MG/0.3 ML Syringe SC ×2 (11:35→22:11)
--- NOTE | 2020-09-25 15:12 | PN_ITS ---
Patient Problems: Active and Suspected Problems COVID-19 (Acute) Pneumonia (Acute) Sepsis due to COVID-19 (Acute) Subjective: Patient seen and examined. He says he feels worse than yesterday. He complains of weakness and generalised aches and pains. He denies shortness of breath. Review of systems is otherwise negative. He has remained hemodynamically stable, though he has been bradycardic, with HR going down to 50. Vitals/I&O's: Vital Signs Temp Pulse Resp BP Pulse Ox 97.9 F 50 L 20 H 132/62 H 95 09/25/20 14:39 09/25/20 14:39 09/25/20 14:39 09/25/20 14:39 09/25/20 14:39 Oxygen Delivery Method Room Air Weight: 154 lb 8.705 oz Body Mass Index (BMI) 23.5 Intake and Output for Last 24 Hours 09/23/20 09/24/20 09/25/20 23:59 23:59 23:59 Intake Total 3437.5 / 3437.5 1820 / 1820 250 / 250 Output Total 250 / 250 850 / 1200 600 / 600 Balance 3187.5 / 3187.5 970 / 620 -350 / -350 General: Alert, Oriented x3, Cooperative, No apparent distress HEENT: Atraumatic, PERRLA, EOMI, Normocephalic Oral: Dry Mucosa Neck: Supple, No JVD, Negative Carotid Bruits Lungs: Clear to auscultation, Normal air movement, No rhonchi, No wheeze, No rales Cardiovascular: Regular Rhythm, Normal S1, Normal S2, No murmurs, bradycardic Abdomen: Bowel Sounds Present, Soft, Non Tender, Non-Distended, No Hepato- splenomegaly Extremities: No clubbing, No cyanosis, No edema, Capillary Refill Less than 3 Seconds Skin: No rashes, No breakdown Musculoskeletal: No Tenderness to Palpation of Joints or Extremities Lymphatic: No Cervical, Supraclavicular, or Inguinal Adenopathy Neurological: Cranial nerves II-XII grossly intact, Neuro grossly intact, Motor Exam 5/5 strength throughout Psych/Mental Status: Normal Affect, Appropriate, Alert and oriented to time, place, person, mood and affect Microbiology Past 72 Hours 09/24/20 04:25 Sputum, Expectorated/Coughed Gram Stain - Final 09/24/20 04:25 Sputum, Expectorated/Coughed Respiratory Culture - Preliminary Appears to be normal respiratory jovani. Further studies to follow. 09/23/20 17:50 Urine, Random Urine Culture - Final Mixed Gram Pos & Gram Neg Org 09/23/20 16:50 Mucosa - Nasopharyngeal Respiratory Panel (PCR) - Final 09/23/20 17:50 Urine, Clean Catch Legionella Antigen - Final 09/23/20 17:50 Urine, Clean Catch Streptococcus pneumoniae Antigen (M - Final 09/23/20 16:50 Mucosa - Nose SARS-CoV-2 Antigen (Rapid) - Final SARS-CoV-2 (COVID 19) 09/23/20 16:16 Mucosa - Nasopharyngeal Influenza Types A,B Direct FA ([facility]) - Final Laboratory Results 09/25/20 04:45: WBC 6.1, RBC 4.38 L, Hgb 12.6 L, Hct 37.2 L, MCV 84.9, MCH 28.8, MCHC 33.9, RDW Std Deviation 41.8, RDW Coeff of Laura 13.3, Plt Count 124 L, MPV 10.8 09/25/20 04:45: Sodium 139, Potassium 3.6, Chloride 106, Carbon Dioxide 27.0, Anion Gap 6, BUN 21 H, Creatinine 0.85, Estim Creat Clear Calc 77.12, Est GFR (MDRD) Af Amer 114, Est GFR (MDRD) Non-Af 95, BUN/Creatinine Ratio 24.7 H, Glucose 120 H, Calcium 7.4 L, Total Bilirubin 0.30, AST 27, ALT 24, Alkaline Phosphatase 36 L, Total Protein 5.3 L, Albumin 2.4 L, Globulin 2.9, Albumin/Globulin Ratio 0.8 L Current Medications Acetaminophen (Acetaminophen 325 Mg Tablet) 650 mg PO Q6H PRN PRN PRN Reason: Pain Score 1-10/Temp > 100.7 F Last Admin: 09/25/20 09:11 Dose: 650 mg Documented by: Dexamethasone (Dexamethasone 4 Mg Tablet) 6 mg PO DAILY [facility] Stop: 10/02/20 10:01 Last Admin: 09/25/20 11:35 Dose: 6 mg Documented by: Enoxaparin Sodium (Enoxaparin 30 Mg/0.3 Ml Syringe) 30 mg SC BID [facility] Last Admin: 09/25/20 11:35 Dose: 30 mg Documented by: Remdesivir 100 mg/ Sodium (Chloride) 250 mls @ 125 mls/hr IV DAILY@2200 [facility] Stop: 09/27/20 23:59 Last Infusion: 09/25/20 00:14 Dose: Infused Documented by: Sodium Chloride () 250 mls @ 15 mls/hr IV .[id number] PRN PRN Reason: Saline Flush Sodium Chloride () 250 mls @ 15 mls/hr IV .[id number] PRN PRN Reason: Additional IVPB Infusion Morphine Sulfate (Morphine 2 Mg/Ml Syringe) 2 mg IV Q3H PRN PRN PRN Reason: Pain Score 6-10 Nitroglycerin (Nitroglycerin (Inpatient Use) 0.4 Mg Tab.Subl) 0.4 mg SL Q5M PRN PRN Reason: CARDIAC/CHEST PAIN Nutritional Formula (Lactose Free) (Ensure Enlive 120 Ml Liquid) 120 ml PO 4X/DAY [facility] Last Admin: 09/25/20 14:38 Dose: Not Given Documented by: Ondansetron HCl (Ondansetron 4 Mg/2 Ml Vial) 4 mg IV Q8H PRN PRN PRN Reason: NAUSEA/VOMITING Oxycodone HCl (Oxycodone 5 Mg Tablet) 5 mg PO Q4H PRN PRN PRN Reason: Pain Score 4-5 Senna/Docusate Sodium (Senna/Docusate Sodium 1 Tablet) 2 tablet PO BID PRN PRN PRN Reason: Constipation Sodium Chloride (0.9% Saline Lock 10 Ml Syringe) 10 - 40 ml IV UD PRN PRN Reason: SALINE FLUSH Last Admin: 09/24/20 10:06 Dose: 20 ml Documented by: STROKE Vital Signs/Narrative: Vital Signs Temp Pulse Resp BP Pulse Ox 09/25/20 14:39 97.9 F 50 L 20 H 132/62 H 95 09/25/20 11:55 52 L Medical Necessity - Tobacco Use Smoking Status: Never smoker Assessment/Plan All Active Problems COVID-19 (Acute) Pneumonia (Acute) Sepsis due to COVID-19 (Acute) # COVID 19 pneumonia * ceftriaxone and azithromycin dc;d as sputum culture negative. * on remdesivir and decadron * urine for strep and legionella were negative * ID on board * sputum culture growing normal respiratory jovani. * #COVID 19 pneumonia: as above #Bradycardia: HR is 50. Currently asymptomatic. Likely due to COVID. Will monitor. #DVT prophylaxis: lovenox Inpatient E&M: 32331 Subs Hosp L2
[2020-09-26] VITALS (7 sets, daily range): BP systolic 147–151; BP diastolic 65–72; PULSE 50–65; RESP 18–20; TEMP 36.7–37.1; O2SAT 94–95
[2020-09-26 04:48] LABS: ALB/GLOB Ratio 0.8 RATIO (0.9-2.4); AST(SGOT) 37 U/L (15-37); Alanine Aminotransfer ALT/SGPT 29 U/L (16-61); Albumin, Serum 2.4 g/dL (3.2-5.0); Alkaline Phosphatase 36 U/L (45-117); Anion Gap 7 (5-15); BUN 19 mg/dL (7-18); BUN/Creat Ratio 24.3 RATIO (10-20); Calcium,Total 7.5 mg/dL (8.5-10.1); Chloride 106 mmol/L (98-107); Creatinine, Serum 0.78 mg/dL (0.70-1.30); EST Glomerular Filtration Rate 104 mL/min (>60); Est Glom Filt Rate - Afr Amer 126 mL/min (>60); Estimated Creatinine Clearance 65.55 ml/min; Globulin 2.9 g/dL (2.2-4.2); Glucose 123 mg/dL (74-106); Potassium 3.6 mmol/L (3.5-5.1); Protein, Total 5.3 g/dL (6.4-8.2); Sodium Level 139 mmol/L (136-145)
[2020-09-26] MEDS: dexAMETHasone 4 MG Tablet 6 MG PO (10:45)
[2020-09-26] MEDS: Enoxaparin 30 MG/0.3 ML Syringe SC (10:45)
--- NOTE | 2020-09-26 11:35 | DCINST_ITS ---
- Discharge Diagnoses Current Active Problems: Current Active and Chronic Problems COVID-19 (Acute) Pneumonia (Acute) Sepsis due to COVID-19 (Acute) You will use the following diet at home:: Cardiac Your food should be the consistency of: Regular Your liquids should be the consistency of: Regular/Thin Discharge Activity: Return to Normal Activity Weight Bearing Status: Weight bearing as tolerated Call your doctor if you observe: Fever of 101 or Higher, Shortness of breath, Dizziness, Fainting spells Instructions: Coronavirus Disease 2019 (COVID-19): Overview, Coronavirus Disease 2019 (COVID-19): Caring for Yourself or Others Additional Instructions: stay in self isolation till 10/14/2020 to complete 21 days of self isolation since diagnosis. Allergies/Adverse Reactions: Allergies No Known Allergies Allergy (Verified 09/23/20 15:39) Medications to take at Discharge Naproxen Sodium [Aleve] 440 mg PO DAILY 09/23/20 Dexamethasone [Decadron] 6 mg PO DAILY #6 tab 09/26/20 The following prescriptions were given: Dexamethasone [Decadron] 6 mg PO DAILY #6 tab Transmission Status: Pending to [facility] Primary Care Physician: Care Physician,No Primary [Primary Care Provider] - Test Results: Test results from this visit will be discussed in further detail at your follow- up appointment, if applicable. Please Follow Up With: Oscar Pimentel MD When: 2-3 weeks to establish PCP relationship Proposed Discharge Date: 09/26/20
--- NOTE | 2020-09-26 11:37 | DS.PCM_ITS ---
Discharge Date and Diagnosis - Problem List Patient Problems: Active and Suspected Problems COVID-19 (Acute) Pneumonia (Acute) Sepsis due to COVID-19 (Acute) Date of Admission: 09/23/20 Date of Discharge: 09/26/20 - Primary Discharge Diagnosis Acute Problems: Active Problems COVID-19 (Acute) Pneumonia (Acute) Sepsis due to COVID-19 (Acute) Hospital Course and Treatment Imaging Results: Diagnostic Data Chest X-Ray 09/23/20 16:55 IMPRESSION: Left lower lung infiltrate. Electronically Signed: Denver Wyman MD at 17:18 EST , Service support , Chest CTA 09/23/20 17:38 IMPRESSION: CTA chest examination, without a demonstrated pulmonary embolism or arterial dissection. Left greater than right pneumonia. Electronically Signed: Denver Wyman MD at 19:14 EST , Service support , infectious diseases- Dr Cerna Operations: None Procedures: None Summary of Care Provided: The patient is a 70 year old M with a past medical history as outlined was admitted through the ED on 09/23/2020 with a complaint of shortness of breath and cough for 5 days prior to admission. He also rested fever and chills and a headache with muscle aches and sore throat. Temperature in the ED was 102.9 Fahrenheit. Covid test done was positive. He was however not hypoxic. Chest x-ray and CT done showed left lower lobe infiltrate but there was no PE. He was admitted and managed for sepsis due to COVID-19 infection. He was started on IV ceftriaxone and azithromycin also started on remdesivir and prednisone. ID was consulted. Antimicrobials were subsequently discontinued as the symptoms were thought to be due to COVID-19 infection. Patient's hospital stay was not complicated and he remained stable. He remained hypoxic and did not require any oxygen. He was discharged home on 09/26/2020 with a prescription for p.o. prednisone 60 mg daily for 6 days to complete a 10-day course. He is to follow- up with his primary care doctor. Of note, he was to remain in isolation till 10/14/2020 to complete a 21-day self-isolation period since diagnosis. Patient seen and examined prior to discharge. He had no complaints. Review of symptoms otherwise negative. Labs and vitals reviewed. Home medication reviewed and reconciled. O/E: Vital Signs Temp Pulse Resp BP Pulse Ox 98.2 F 65 20 H 147/72 H 94 09/26/20 09:16 09/26/20 12:45 09/26/20 09:16 09/26/20 09:16 09/26/20 09:16 General: Alert, Oriented x3, Cooperative, No apparent distress HEENT: Atraumatic, PERRLA, EOMI, Normocephalic Oral: Dry Mucosa Neck: Supple, No JVD, Negative Carotid Bruits Lungs: Clear to auscultation, Normal air movement, No rhonchi, No wheeze, No rales Cardiovascular: Regular Rhythm, Normal S1, Normal S2, No murmurs, bradycardic Abdomen: Bowel Sounds Present, Soft, Non Tender, Non-Distended, No Hepato- splenomegaly Extremities: No clubbing, No cyanosis, No edema, Capillary Refill Less than 3 Seconds Skin: No rashes, No breakdown Musculoskeletal: No Tenderness to Palpation of Joints or Extremities Lymphatic: No Cervical, Supraclavicular, or Inguinal Adenopathy Neurological: Cranial nerves II-XII grossly intact, Neuro grossly intact, Motor Exam 5/5 strength throughout Psych/Mental Status: Normal Affect, Appropriate, Alert and oriented to time, place, person, mood and affect Plan is for discharge home. Patient Problems: Active and Suspected Problems COVID-19 (Acute) Pneumonia (Acute) Sepsis due to COVID-19 (Acute) - Physical Exam Vitals/I&O's: Vital Signs Temp Pulse Resp BP Pulse Ox 98.2 F 57 L 20 H 147/72 H 94 09/26/20 09:16 09/26/20 09:16 09/26/20 09:16 09/26/20 09:16 09/26/20 09:16 Oxygen Delivery Method Room Air Weight: 154 lb 8.705 oz Body Mass Index (BMI) 23.5 Intake and Output for Last 24 Hours 09/24/20 09/25/20 09/26/20 23:59 23:59 23:59 Intake Total 1820 / 1820 250 / 450 450 / 450 Output Total 850 / 1200 1450 / 1450 600 / 600 Balance 970 / 620 -1200 / -1000 -150 / -150 Microbiology Past 72 Hours 09/24/20 04:25 Sputum, Expectorated/Coughed Gram Stain - Final 09/24/20 04:25 Sputum, Expectorated/Coughed Respiratory Culture - Final 09/23/20 16:25 Blood Culture (Wb) - Right Wrist Blood Culture - Preliminary No growth in 48 hours. 09/23/20 16:15 Blood Culture (Wb) - Anticubital Right Blood Culture - Preliminary No growth in 48 hours. 09/23/20 17:50 Urine, Random Urine Culture - Final Mixed Gram Pos & Gram Neg Org 09/23/20 16:50 Mucosa - Nasopharyngeal Respiratory Panel (PCR) - Final 09/23/20 17:50 Urine, Clean Catch Legionella Antigen - Final 09/23/20 17:50 Urine, Clean Catch Streptococcus pneumoniae Antigen (M - Final 09/23/20 16:50 Mucosa - Nose SARS-CoV-2 Antigen (Rapid) - Final SARS-CoV-2 (COVID 19) 09/23/20 16:16 Mucosa - Nasopharyngeal Influenza Types A,B Direct FA ([facility]OR[facility]) - Final Laboratory Results 09/26/20 04:15: Sodium 139, Potassium 3.6, Chloride 106, Carbon Dioxide 26.0, Anion Gap 7, BUN 19 H, Creatinine 0.78, Estim Creat Clear Calc 65.55, Est GFR (MDRD) Af Amer 126, Est GFR (MDRD) Non-Af 104, BUN/Creatinine Ratio 24.3 H, Glucose 123 H, Calcium 7.5 L, Total Bilirubin 0.40, AST 37, ALT 29, Alkaline Phosphatase 36 L, Total Protein 5.3 L, Albumin 2.4 L, Globulin 2.9, Albumin/Globulin Ratio 0.8 L Diagnostic Data Chest X-Ray 09/23/20 16:55 IMPRESSION: Left lower lung infiltrate. Electronically Signed: Denver Wyman MD at 17:18 EST , Service support , Chest CTA 09/23/20 17:38 IMPRESSION: CTA chest examination, without a demonstrated pulmonary embolism or arterial dissection. Left greater than right pneumonia. Electronically Signed: Denver Wyman MD at 19:14 EST , Service support , Current Medications Acetaminophen (Acetaminophen 325 Mg Tablet) 650 mg PO Q6H PRN PRN PRN Reason: Pain Score 1-10/Temp > 100.7 F Last Admin: 09/25/20 20:55 Dose: 650 mg Documented by: Dexamethasone (Dexamethasone 4 Mg Tablet) 6 mg PO DAILY [facility] Stop: 10/02/20 10:01 Last Admin: 09/26/20 10:45 Dose: 6 mg Documented by: Enoxaparin Sodium (Enoxaparin 30 Mg/0.3 Ml Syringe) 30 mg SC BID [facility] Last Admin: 09/26/20 10:45 Dose: 30 mg Documented by: Remdesivir 100 mg/ Sodium (Chloride) 250 mls @ 125 mls/hr IV DAILY@2200 [facility] Stop: 09/27/20 23:59 Last Infusion: 09/26/20 00:11 Dose: Infused Documented by: Sodium Chloride () 250 mls @ 15 mls/hr IV .[id number] PRN PRN Reason: Saline Flush Sodium Chloride () 250 mls @ 15 mls/hr IV .[id number] PRN PRN Reason: Additional IVPB Infusion Morphine Sulfate (Morphine 2 Mg/Ml Syringe) 2 mg IV Q3H PRN PRN PRN Reason: Pain Score 6-10 Nitroglycerin (Nitroglycerin (Inpatient Use) 0.4 Mg Tab.Subl) 0.4 mg SL Q5M PRN PRN Reason: CARDIAC/CHEST PAIN Nutritional Formula (Lactose Free) (Ensure Enlive 120 Ml Liquid) 120 ml PO 4X/DAY [facility] Last Admin: 09/26/20 10:44 Dose: Not Given Documented by: Ondansetron HCl (Ondansetron 4 Mg/2 Ml Vial) 4 mg IV Q8H PRN PRN PRN Reason: NAUSEA/VOMITING Oxycodone HCl (Oxycodone 5 Mg Tablet) 5 mg PO Q4H PRN PRN PRN Reason: Pain Score 4-5 Senna/Docusate Sodium (Senna/Docusate Sodium 1 Tablet) 2 tablet PO BID PRN PRN PRN Reason: Constipation Sodium Chloride (0.9% Saline Lock 10 Ml Syringe) 10 - 40 ml IV UD PRN PRN Reason: SALINE FLUSH Last Admin: 09/24/20 10:06 Dose: 20 ml Documented by: Discharge Diet: No Restrictions Discharge Activity: Return to Normal Activity Weight Bearing Status: Weight bearing as tolerated Call your doctor if you observe: Fever of 101 or Higher, Shortness of breath, Dizziness, Fainting spells Home Medications: Medications to take at Discharge Naproxen Sodium [Aleve] 440 mg PO DAILY 09/23/20 Dexamethasone [Decadron] 6 mg PO DAILY #6 tab 09/26/20 Following Prescriptions Were Given to Patient: Dexamethasone [Decadron] 6 mg PO DAILY #6 tab Transmission Status: Received by [id number] Primary Care Physician: Care Physician,No Primary [Primary Care Provider] - Please Follow Up With: Oscar Pimentel MD When: 2-3 weeks to establish PCP relationship Patient Instructions: Coronavirus Disease 2019 (COVID-19): Overview, Coronavirus Disease 2019 (COVID-19): Caring for Yourself or Others Disposition: Home Minutes spent on discharge:: 35 Patient Condition:: Stable Medical Necessity - Tobacco Use Smoking Status: Never smoker Meaningful Use Info Meaningful Use Diagnoses (Choose all that apply): None applicable Inpatient E&M: 38650 Disch Hosp
--- NOTE | 2020-09-29 15:09 | CASEMGMT ---
RN CM Discharge Phone Call DC Date: 09/26/20 DC Diagnosis: COVID 19 DC Disposition: Home Attempted call to patient's phone. No answer, and no name identifier with message. Richie SALAZAR RN ACM
== END 2020-09-26 15:40 | disposition home or self-care (01) | DRG 871 ==
LOC: ED 19:42 → ICU 20:09
PROVIDERS: Admitting Provider Internal Medicine; Emergency Provider Emergency Medicine; Visit Provider Student in an Organized Health Care Education/Training Program
DX: A41.89 Other specified sepsis (principal); U07.1 COVID-19; J12.82 Pneumonia due to coronavirus disease 2019; J15.9 Unspecified bacterial pneumonia; R09.02 Hypoxemia; R79.89 Other specified abnormal findings of blood chemistry; M19.90 Unspecified osteoarthritis, unspecified site; R00.1 Bradycardia, unspecified; I44.0 Atrioventricular block, first degree; Z79.899 Other long term (current) drug therapy
CPT/HCPCS: 36415; 71045; 71275; 80053; 81001; 82550; 83605; 83615; 83735; 83880; 84145; 84484; 85025; 85027; 85379; 85384; 85610; 85730; 86140; 87040; 87070; 87086; 87088; 87205; 87426; 87449; 87633; 87804; 93005; 94667; 97802; 99251; 99285; J7030; J7040; J7050; Q9967; A4216; G0463

== ENCOUNTER 2020-10-03 12:41 | Emergency (ER) | payer MEDICARE, SELFPAY ==
[2020-09-23 20:42] VITALS: BMI 23.5
[2020-10-03 12:42] VITALS: BP 124/66; PULSE 82; RESP 15; TEMP 36.8; O2SAT 98; BMI 22.8
[2020-10-03 12:49] VITALS: BP 124/66; PULSE 76; RESP 15; O2SAT 99
[2020-10-03 12:54] VITALS: BP 124/99; PULSE 80; RESP 14; TEMP 37; O2SAT 100
[2020-10-03] MEDS: 0.9% Normal Saline 1,000 ML 1000 ML IV (13:30)
--- NOTE | 2020-10-03 13:30 | EKG12_ITS ---
Test Reason : WEAKNESS Blood Pressure : / mmHG Vent. Rate : 066 BPM Atrial Rate : 066 BPM P-R Int : 208 ms QRS Dur : 088 ms QT Int : 418 ms P-R-T Axes : 023 -04 049 degrees QTc Int : 438 ms Normal sinus rhythm Inferior infarct , age undetermined Abnormal ECG Confirmed by JONA JUAREZ, BEHZAD ([id number]), field map editor QUENTIN SAUCEDO ([id number]) on 10/06/2020 10:53:45 A M Referred By: EILEEN Confirmed By:INGRIS TENORIO MD
--- NOTE | 2020-10-03 13:31 | ED.VIS.GEN ---
History of Present Illness Chief Complaint: Weakness Informant: Patient, Store Operations Manager Narrative: 70-year-old male presents via EMS from home with chief complaint of generalized weakness. Patient was admitted recently with Covid pneumonia. He was discharged home on the . He states he has been taking steroids and is due to take his last one this morning. The patient states that he cannot get his strength back. He states he is barely eating. States he has been drinking water okay. He states that he still has a slight cough and loss of smell. Otherwise he has not had any other Covid symptoms. No further fevers. His recently tested positive and is also in the emergency department. Patient thinks he may need a rehab unit. 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 Reportedly he needs to be better to help care for her. That is why both of them came to the hospital today. Past Medical History - Allergies and Home Meds Allergies/Adverse Reactions: Allergies No Known Allergies Allergy (Verified 09/23/20 15:39) Primary Care Physician: Care Physician,No Primary [Primary Care Provider] - Surgical History: - - Carpal tunnel surgery Lives: Spouse/ Significant Other Smoking Status: Never smoker Drugs: None - Family History Paternal Family History: Reports: No pertinent history Review of Systems General: Reports: Malaise. Denies: Chills, Fever, Sweats Eyes: Denies: Visual changes - bilaterally, Diplopia ENT: Denies: Rhinorrhea, Sore throat Cardiovascular: Denies: Chest pain, Palpitations Respiratory: Reports: Cough, - - Loss of taste and smell. Denies: Dyspnea, Dyspnea on exertion Gastrointestinal: Denies: Abdominal pain, Nausea, Vomiting, Diarrhea, Melena, Hematochezia Genitourinary: Denies: Dysuria, Hematuria, Frequency Musculoskeletal: Denies: Back pain, Extremity Pain Skin: Denies: Rash, Wounds Neurological: Denies: Headache, Weakness, Numbness Physical Exam Vital Signs/Narrative: Vital Signs Temp Pulse Resp BP Pulse Ox 10/03/20 12:54 98.6 F 80 14 124/99 H 100 10/03/20 12:49 76 15 124/66 H 99 10/03/20 12:42 98.2 F 82 15 124/66 H 98 Inital Vital Signs reviewed: Yes General: Well nourished, Well developed, No Acute Distress Head: Normocephalic, Atraumatic Eyes: Perrl, EOMI ENT: Moist mucous membranes, No rhinorrhea Neck: Supple, Nontender Cardiovascular: Regular rate, Regular rhythm, No murmurs Respiratory: No distress, CTA bilaterally, Chest nontender Abdomen: Soft, Nontender, Nondistended, Normal bowel sounds Back: Nontender, Normal Inspection Extremities: Nontender, No edema Skin: Normal color, No rash Neurological: Alert, Oriented x3, Cranial nerves II-XII grossly intact, Normal Strength, Normal Sensation Psychological: Normal affect, Normal Mood Diagnostic/Tx/Re-eval Clinical Impression(s) from Imaging Studies Chest X-Ray 10/03/20 13:53 IMPRESSION: Persistent left lower lobe infiltrate. Electronically Signed: Thaddeus Olivas MD at 14:21 EDT , Service support , Laboratory Last Values WBC 9.5 K/mm3 (4.4-11.0) 10/03/20 14:37 RBC 5.11 M/mm3 (4.6-6.2) 10/03/20 14:37 Hgb 14.2 g/dL (13.0-16.5) 10/03/20 14:37 Hct 43.7 % (40-54) 10/03/20 14:37 MCV 85.5 fL (80-94) 10/03/20 14:37 MCH 27.8 pg (27.0-32.0) 10/03/20 14:37 MCHC 32.5 g/dL (32-36) 10/03/20 14:37 RDW Std Deviation 41.6 fl (35.1-43.9) 10/03/20 14:37 RDW Coeff of Laura 13.5 % (11.6-14.6) 10/03/20 14:37 Plt Count 348 K/mm3 (150-450) 10/03/20 14:37 MPV 9.6 fl (6.2-12.0) 10/03/20 14:37 Immature Gran % (Auto) 4.000 % (0.0-0.9) H 10/03/20 14:37 Neut % (Auto) 83.3 % (47-70) H 10/03/20 14:37 Lymph % (Auto) 5.6 % (19-41) L 10/03/20 14:37 [place] % (Auto) 6.8 % (0-10) 10/03/20 14:37 Eos % (Auto) 0.1 % (0-5) 10/03/20 14:37 Baso % (Auto) 0.2 % (0-1) 10/03/20 14:37 Absolute Neuts (auto) 7.9 X10^3/uL (2.0-7.7) H 10/03/20 14:37 Absolute Lymphs (auto) 0.53 X10^3/uL (0.83-4.51) L 10/03/20 14:37 Nucleated RBC % 0 % (0-5) 10/03/20 14:37 PT 13.5 SECONDS (11.7-14.9) 10/03/20 14:37 INR 1.1 10/03/20 14:37 APTT 29.1 Seconds (24.1-36.2) 10/03/20 14:37 Sodium 140 mmol/L (136-145) 10/03/20 14:37 Potassium 3.9 mmol/L (3.5-5.1) 10/03/20 14:37 Chloride 105 mmol/L (98-107) 10/03/20 14:37 Carbon Dioxide 27.0 mmol/L (21.0-32.0) 10/03/20 14:37 Anion Gap 8 (5-15) 10/03/20 14:37 BUN 25 mg/dL (7-18) H 10/03/20 14:37 Creatinine 0.81 mg/dL (0.70-1.30) 10/03/20 14:37 Estim Creat Clear Calc 80.45 ml/min 10/03/20 14:37 Est GFR (MDRD) Af Amer 120 mL/min (>60) 10/03/20 14:37 Est GFR (MDRD) Non-Af 100 mL/min (>60) 10/03/20 14:37 BUN/Creatinine Ratio 30.8 RATIO (10-20) H 10/03/20 14:37 Glucose 108 mg/dL (74-106) H 10/03/20 14:37 Lactic Acid 1.1 mmol/L (0.4-1.9) 10/03/20 14:37 Calcium 8.3 mg/dL (8.5-10.1) L 10/03/20 14:37 Total Bilirubin 0.70 mg/dL (0.20-1.00) 10/03/20 14:37 AST 19 U/L (15-37) 10/03/20 14:37 ALT 55 U/L (16-61) 10/03/20 14:37 Alkaline Phosphatase 48 U/L (45-117) 10/03/20 14:37 Troponin I < 0.015 ng/mL (<0.045) 10/03/20 14:37 Total Protein 5.9 g/dL (6.4-8.2) L 10/03/20 14:37 Albumin 3.0 g/dL (3.2-5.0) L 10/03/20 14:37 Globulin 2.9 g/dL (2.2-4.2) 10/03/20 14:37 Albumin/Globulin Ratio 1.0 RATIO (0.9-2.4) 10/03/20 14:37 Lipase 190 U/L (73-393) 10/03/20 14:37 - EKG Initial EKG Interpretation: Sinus Rhythm - EKG demonstrates a sinus rhythm rate of 66 without ectopy or concerning features of ACS - Medical Decision Making The patient has normal vital signs. Chest x-ray is improving. The patient labs are currently pending. I did have social work visit with him. His is going to be admitted. He states that if she is admitted he would feel comfortable going home as he would not have to care for her and to focus on his own recovery. This would be preferential in rehab unit for him. Disposition will be made after labs return. ED Disposition - Plan for ED Patient: Disposition: Home or Assisted Living Diagnosis: COVID-19, Weakness Instructions: Coronavirus Disease 2019 (COVID-19): Caring for Yourself or Others Referrals: Oscar Pimentel MD [STAFF PHYSICIAN] - As soon as possible
--- NOTE | 2020-10-03 13:53 | RAD_ITS ---
STUDY: X-RAY CHEST REASON FOR EXAM: Male, 70 years old. covid 19 TECHNIQUE: Single AP portable view of the chest. COMPARISON: Comparison is made with prior study dated 10/03/2020. FINDINGS: EKG electrodes are seen. Persistent left lower lobe infiltrate. There is no demonstrated pleural abnormality. Normal size heart. Normal mediastinum and tsering. Normal visualized pulmonary arteries. Normal visualized aortic arch and descending thoracic aorta. There are diffuse degenerative changes of the visualized thoracic spine. Normal visualized ribs, clavicles, and shoulders. There is no demonstrated abnormality of the visualized soft tissue structures of the upper abdomen. RAD/Chest 1 View (Portable) IMPRESSION: Persistent left lower lobe infiltrate. Electronically Signed: Thaddeus Olivas MD at 14:21 EDT , Service support ,
--- NOTE | 2020-10-03 14:40 | CM.ED ---
SOCIAL WORK Referral Source: [facility] and Dr. Leal Reason for Consult: Discharge Planning Discussed discharge planning with patient. Per patient, is still recovering from COVID-19. 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 also here as patient in ER. Patient states feels he can return home, but believes is in need of SNF. This worker to follow up with . Updated Dr. Leal on the above. Anticipate patient to discharge home. Brian Patton, MANAGEMENT DEPARTMENT CHAIR, RESPIRATORY THERAPIST ASSISTANT
[2020-10-03 14:46] LABS: Absolute Lymphocyte Count 0.53 X10^3/uL (0.83-4.51); Absolute Neutrophil Count 7.9 X10^3/uL (2.0-7.7); Basophil# 0.02 X10^3/uL; Basophil% 0.2 % (0-1); Eosinophil# 0.01 X10^3/uL; Eosinophils% 0.1 % (0-5); Hematocrit 43.7 % (40-54); Hemoglobin 14.2 g/dL (13.0-16.5); Lymphocyte # 0.53 X10^3/ul (4.0); Lymphocyte % 5.6 % (19-41); Mean Corp Hgb Conc 32.5 g/dL (32-36); Mean Corpuscular Hgb 27.8 pg (27.0-32.0); Mean Corpuscular Volume 85.5 fL (80-94); Mean Platelet Vol. 9.6 fl (6.2-12.0); Monocyte# 0.65 X10^3/uL; Monocyte% 6.8 % (0-10); NRBC Flagged by Analyzer 0 % (0-5); Neutrophil % 83.3 % (47-70); POSITIVE DIFFERENTIAL YES; Platelet Count 348 K/mm3 (150-450); RBC Distribution Width CV 13.5 % (11.6-14.6); RBC Distribution Width SD 41.6 fl (35.1-43.9); Red Blood Count 5.11 M/mm3 (4.6-6.2); White Blood Count 9.5 K/mm3 (4.4-11.0)
[2020-10-03 14:47] LABS: Differential Indicated SCAN CRITERIA MET
[2020-10-03 14:56] LABS: International Normalized Ratio 1.1; Prothrombin Time (Protime)PT. 13.5 SECONDS (11.7-14.9)
[2020-10-03 14:57] LABS: Partial Thromboplast Time 29.1 Seconds (24.1-36.2)
[2020-10-03 15:09] LABS: AST(SGOT) 19 U/L (15-37); Alanine Aminotransfer ALT/SGPT 55 U/L (16-61); Alkaline Phosphatase 48 U/L (45-117); Anion Gap 8 (5-15); BUN 25 mg/dL (7-18); BUN/Creat Ratio 30.8 RATIO (10-20); Calcium,Total 8.3 mg/dL (8.5-10.1); Chloride 105 mmol/L (98-107); Creatinine, Serum 0.81 mg/dL (0.70-1.30); EST Glomerular Filtration Rate 100 mL/min (>60); Est Glom Filt Rate - Afr Amer 120 mL/min (>60); Estimated Creatinine Clearance 80.45 ml/min; Globulin 2.9 g/dL (2.2-4.2); Glucose 108 mg/dL (74-106); Lactic Acid 1.1 mmol/L (0.4-1.9); Lipase 190 U/L (73-393); Potassium 3.9 mmol/L (3.5-5.1); Protein, Total 5.9 g/dL (6.4-8.2); Sodium Level 140 mmol/L (136-145)
[2020-10-03] MEDS: dexAMETHasone 4 MG Tablet 6 MG PO (15:24)
[2020-10-03 15:27] VITALS: BP 120/62; PULSE 66; PULSE 74; RESP 15; RESP 16; O2SAT 98
[2020-10-03 15:49] LABS: Bacteria 0 SEEN /hpf (None Seen); Mucous, Urine 0 SEEN /hpf (<or=2+); Red Blood Cells-Urine 0 SEEN /hpf (0-5); White Blood Cells 0 SEEN /hpf (0-5)
[2020-10-03 15:53] LABS: Color, Urine Yellow (Yellow); Glucose, Dipstick Normal (Normal); Ketone-Dipstick Negative (Negative); Leukocyte Esterase-Dipstick Negative /ul (Negative); Nitrite-Dipstick Negative (Negative); Occult Blood-Urine Negative /ul (Negative); Protein-Dipstick Negative (Negative); Specific Gravity, Urine 1.015 (1.002-1.030); Urine Bilirubin Dipstick Negative (Negative); Urine Clarity Clear (Clear); Urine Urobilinogen Normal (Normal)
[2020-10-03 16:03] LABS: Squamous Epithelial Cells - UA 0-5 SEEN /hpf (0-5)
== END 2020-10-03 15:57 | disposition home or self-care (01) ==
PROVIDERS: Emergency Provider Emergency Medicine
DX: U07.1 COVID-19 (principal); J12.82 Pneumonia due to coronavirus disease 2019; R53.1 Weakness
CPT/HCPCS: 71045; 80053; 81001; 83605; 83690; 84484; 85025; 85610; 85730; 93005; 96360; 96361; 99285; A4216